=== PATIENT | female | born 2000 | race Caucasian/White ===

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

== ENCOUNTER 2022-05-15 14:06 | Emergency (ER) | payer OTHER ==
[2022-05-15] MEDS ORDERED: KETOROLAC TROMETHAMINE 30 MG/1 ML VIAL IVPUSH ONE (14:11)
[2022-05-15] MEDS ORDERED: DEXAMETHASONE SOD PHOSPHATE 20 MG/5 ML VIAL IVPB ONE (14:11)
[2022-05-15] MEDS ORDERED: ACETAMINOPHEN 1000 MG/100 ML BAG IVPB ONE (14:11)
[2022-05-15] MEDS ORDERED: LIDOCAINE VISCOUS 2% ORAL/TOP 15 ML UNIT-DOSE CUP MM ONE (14:13)
[2022-05-15] MEDS ORDERED: ACETAMINOPHEN INJECTION 100 ML IVPB ONE (14:14)
[2022-05-15] MEDS ORDERED: KETOROLAC TROMETHAMINE 30 MG/1 ML VIAL ONE (14:14)
[2022-05-15] MEDS ORDERED: DEXAMETHASONE SOD PHOSPHATE 10 MG/1 ML VIAL ONE (14:14)
[2022-05-15 14:21] VITALS: BP 120/80; PULSE 112; RESP 20; TEMP 99.2; BMI 20.9
[2022-05-15] MEDS ORDERED: LIDOCAINE VISCOUS 2% ORAL/TOP 15 ML UNIT-DOSE CUP ONE (14:48)
== END 2022-05-15 16:20 | disposition home or self-care (01) ==
LOC: FER 14:06
PROC: 3E033GC Introduction of Other Therapeutic Substance into Peripheral Vein, Percutaneous Approach (ICD-10-PCS; principal; 2022-05-15)
DX: B27.90 Infectious mononucleosis, unspecified without complication (principal); R07.0 Pain in throat
CPT/HCPCS: 99284-25

== ENCOUNTER 2024-10-30 10:26 | Emergency (ER) | payer OTHER ==
[2024-10-30 10:48] VITALS: BP 112/77; PULSE 88; RESP 20; TEMP 98.2; BMI 21.7
== END 2024-10-30 11:23 | disposition home or self-care (01) ==
LOC: FER 10:26
DX: J40 Bronchitis, not specified as acute or chronic (principal); R05.9 Cough, unspecified; R09.81 Nasal congestion; J18.9 Pneumonia, unspecified organism; Z20.822 Contact with and (suspected) exposure to COVID-19
CPT/HCPCS: 0241U-QW; 71046-TC-FY; 99283-25